=== PATIENT | male | born 1980 | race Caucasian/White ===

== ENCOUNTER 2025-05-17 23:30 | Emergency (ER) | payer BC ==
[~2025-05-17] VITALS: Ht 188 cm; Wt 67.7 kg
[2025-05-17 23:39] VITALS: O2SAT 99
[2025-05-18] MEDS ORDERED: LIDOCAINE HCL/PF 1% 10 MG/ML 5ML VIAL INFIL ONE (01:30)
[2025-05-18 03:00] VITALS: BP 104/68; PULSE 66; RESP 15; TEMP 36.8; O2SAT 97
[2025-05-18] MEDS ORDERED: BO1 TP (03:00)
[2025-05-18] MEDS: BACITRACIN ZINC OINT UDPKT TOP ONE (03:11)
[2025-05-18] MEDS: TETANUS, DIPHTHERIA, PERTUSSIS VAC/PF 0.5ML (>10YR OLD) IM ONE (03:11)
== END 2025-05-18 03:30 | disposition home or self-care (01) ==
LOC: ER 23:30
DX: S61.216A Laceration without foreign body of right little finger without damage to nail, initial encounter (principal); Y92.480 Sidewalk as the place of occurrence of the external cause; Y93.01 Activity, walking, marching and hiking; Y92.89 Other specified places as the place of occurrence of the external cause; Y99.8 Other external cause status
CPT/HCPCS: 99283; 90715; 12001; 90471; J2003; Z7610

== ENCOUNTER 2025-05-25 12:33 | Emergency (ER) | payer BC ==
[~2025-05-25] VITALS: Ht 188 cm; Wt 68.0 kg
[~2025-05-25 12:33] MED LIST: BO1 TP
[2025-05-25 12:35] VITALS: O2SAT 97
[2025-05-25 12:38] VITALS: BP 112/64; PULSE 69; RESP 18; TEMP 36.7; O2SAT 100
== END 2025-05-25 13:44 | disposition home or self-care (01) ==
LOC: ER 12:33
DX: S61.411D Laceration without foreign body of right hand, subsequent encounter (principal); Z79.899 Other long term (current) drug therapy; X58.XXXD Exposure to other specified factors, subsequent encounter
CPT/HCPCS: 99281; Z7610